=== PATIENT | male | born 1975 | race Caucasian/White ===

== ENCOUNTER 2021-03-20 09:41 | Emergency (ER) | payer OTHER ==
[~2021-03-20] VITALS: Ht 193 cm; Wt 99.8 kg
[~2021-03-20 09:41] MED LIST: CLARITHROMYCIN500 MG PO; PATANOL5 ML OD
--- OUTSIDE RECORDS SUMMARY | 2021-03-20 09:44 | XMS ---
PreManage Notification: RADHA MELENDEZ Security [employer] Events No recent Security Events currently on file [facility] There are no care providers on record at this time. Carolyn has no Care Guidelines for this patient. Luz VISIT COUNT (12 MO.) 1 ROSSY Kowalski TOTAL 1 NOTE: Visits indicate total known visits. ED/C VISIT TRACKING (12 MO.) 03/20/2021 09:42 ROSSY Cantu OR TYPE: Emergency COMPLAINT: - DIZZY, CHEST PAIN INPATIENT VISIT TRACKING (12 MO.) No inpatient visits to display in this time frame [id number]
--- NOTE | 2021-03-20 14:19 | EKG ---
[facility] [address] [facility] [place], [place] [address] Signed Normal sinus rhythm with sinus arrhythmia Normal ECG No previous ECGs available Confirmed by NOEL DOWNEY DO ([id number]) on 03/20/2021 2:19:24 PM Electronically Signed By: NOEL DOWNEY DO 03/20/21 1419 PATIENT NAME: RADHA MELENDEZ Electrocardiogram DATE OF : 77 PHYSICIAN: NOEL DOWNEY DO REPORT #: [id number] REPORT IS CONFIDENTIAL AND NOT TO BE RELEASED WITHOUT AUTHORIZATION
== END 2021-03-20 11:44 | disposition home or self-care (01) ==
LOC: ED 09:41
DX: R07.9 Chest pain, unspecified (principal); Z88.0 Allergy status to penicillin; Z88.1 Allergy status to other antibiotic agents; Z88.2 Allergy status to sulfonamides; Z79.899 Other long term (current) drug therapy
CPT/HCPCS: 71046; 80053; 84443; 84484; 85025; 93005; 93010; 99285-25

== ENCOUNTER 2022-07-26 10:56 | Emergency (ER) | payer OTHER ==
[~2022-07-26] VITALS: Ht 193 cm; Wt 95.2 kg
--- OUTSIDE RECORDS SUMMARY | 2022-07-26 11:00 | XMS ---
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 Luz VISIT COUNT (12 MO.) 1 ROSSY Kowalski TOTAL 1 NOTE: Visits indicate total known visits. ED/UCC VISIT TRACKING (12 MO.) 07/26/2022 10:58 ROSSY Cantu OR TYPE: Emergency COMPLAINT: - RAPID HEART RATE INPATIENT VISIT TRACKING (12 MO.) No inpatient visits to display in this time frame [id number]
[2022-07-26] MEDS ORDERED: ALPRAZOLAM0.25 MG PO (11:09)
[2022-07-26] MEDS ORDERED: ACETAZOLAMIDE125 MG PO (11:09)
[2022-07-26] MEDS ORDERED: OMEPRAZOLE20 MG PO (11:09)
--- NOTE | 2022-07-27 07:52 | EKG ---
[facility] [address] [place] [address] Signed Atrial fibrillation with rapid ventricular response Abnormal ECG When compared with ECG of 20-MAR-2021 09:52, Atrial fibrillation has replaced Sinus rhythm Vent. rate has increased BY 56 BPM Confirmed by RODERICK MOE MD ([id number]) on 07/27/2022 7:52:32 AM Electronically Signed By: RODERICK MOE MD 07/27/22751 PATIENT NAME: RADHA MELENDEZ Electrocardiogram DATE OF : 77 PHYSICIAN: RODERICK MOE MD REPORT #: [id number] REPORT IS CONFIDENTIAL AND NOT TO BE RELEASED WITHOUT AUTHORIZATION
== END 2022-07-26 13:10 | disposition home or self-care (01) ==
LOC: ED 10:56
DX: I48.91 Unspecified atrial fibrillation (principal); Z88.0 Allergy status to penicillin; Z88.2 Allergy status to sulfonamides; Z88.8 Allergy status to other drugs, medicaments and biological substances
CPT/HCPCS: 36415; 80053; 83735; 84484; 85025; 93005; 93010; J2704

== ENCOUNTER 2025-02-02 07:50 | Day surgery (SDC) | payer OTHER ==
[2025-01-11 08:41] VITALS: BP 116/75
[~2025-02-02] VITALS: Ht 193 cm; Wt 100.0 kg
[~2025-02-02 07:50] MED LIST changes: +ACETAZOLAMIDE125 MG PO; +ALPRAZOLAM0.25 MG PO; +IBLOOD GLUCOSE TEST STRIP 1 EA TEST VI PRN; +LACTATED RINGER'S 1,000 ML IV SCH; +LIDOCAINE HCL 1% 5 ML SDV INJ ONE; +METOPROLOL TART25 MG PO; +OMEPRAZOLE20 MG PO; +TESTONE CI200 MG/1 M IM; +TOPROL XL100 MG PO; +VIAGRA25 MG PO; +ZYRTEC10 MG PO
[2025-02-02 08:11] VITALS: BP 122/85
[2025-02-02] MEDS ORDERED: propofoL 200 MG/20 ML VIAL ONE ×2 (08:54→09:09)
[2025-02-02] MEDS ORDERED: LIDOCAINE HCL 2% 5 ML SDV ONE (08:54)
--- NOTE | 2025-02-02 09:47 | NUR ---
02/02/25 0947 Giulia Trujillo 0934-PT ARRIVES TO PACU VIA STRETCHER, RESTING ON LT SIDE. PT NOT RESPONSIVE TO VERBAL OR TACTILE STIMULI, VSS ON 2L VIA NC, RR EVEN AND UNLABORED. 0940-PT TITRATED TO RA, VS REMAIN STABLE, PT CONTINUES TO REST W/ EYES CLOSED, RR EVEN AND UNLABORED.
[2025-02-02 10:04] VITALS: BP 117/84
--- NOTE | 2025-02-03 08:19 | OR ---
[facility] [address] [place], [place] [address] Signed DATE OF OPERATION: 02/02/2025 SURGEON: Edmond Corrales MD PREOPERATIVE DIAGNOSIS: Paternal grandfather with colon cancer in his late 60s. POSTOPERATIVE DIAGNOSIS: Minimal internal and external hemorrhoids. PROCEDURE: Colonoscopy without biopsy. ESTIMATED BLOOD LOSS: None. INDICATIONS: Idris is a 49-year-old gentleman, asked to see me for his initial colonoscopy. His paternal grandfather was diagnosed with colon cancer in his 60s and then from the colon cancer in his 70s. I had met Stephan in March of 2023. However, he developed paroxysmal atrial fibrillation and underwent cardioversion several times. Eventually, Dr. Dat Cross was able to help him with his cardiac ablation. He completed this in July 2023. He said he has done great ever since. He does see Dr. Ying once a year. him and all the stress related to his work is gone. He has been off the alprazolam and the diazepam. 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 Currently, he has no lower GI complaints. He did go through prostate cancer and a radical prostatectomy since I had seen him last. In the office, I had given him a brochure on colonoscopy. We had reviewed the nature of the test. There is risk including, but not limited to gas bloating, crampy abdominal pain, bleeding, perforation requiring surgery, and missed diagnosis. We also reviewed the written instructions for the bowel prep line by line. He understands the need for monitored anesthesia care, particularly with his paroxysmal AFib along with his sleep apnea and his significant anxiety. He had expressed understanding and wished to proceed. He said his will take him home afterwards. DESCRIPTION OF PROCEDURE: Idris was taken into our endoscopy suite and placed in the left lateral decubitus position. He was given monitored anesthesia care propofol infusion per our nurse logistics engineer. A digital rectal exam was performed. He had just a small external hemorrhoid tissue. He had good sphincter tone. There were no masses. His prostate Electronically Signed By: EDMOND CORRALES MD 02/03/25 0819 PATIENT NAME: IDRIS MELENDEZ OPERATIVE REPORT DATE OF : 77 REPORT #: [id number] PHYSICIAN: EMDOND CORRALES MD PCP: ALLAN STRANGE MD REPORT IS CONFIDENTIAL AND NOT TO BE RELEASED WITHOUT AUTHORIZATION [facility] [address] [place], [place] [address] Signed gland was absent. The adult colonoscope was introduced and advanced all the way around into the cecum under direct visualization of camera without difficulty. His prep was good. He had several areas of liquid particulate stool matter, those were irrigated and suctioned out quite readily. We could easily see the appendiceal orifice and ileocecal valve. The scope was then slowly withdrawn. We found no pathology throughout the entire colon or rectum. Upon retroflexion of scope, he had just small internal hemorrhoid columns. After this, the gas was suctioned out. The colonoscope removed. Idris tolerated the procedure quite well. RECOMMENDATIONS: Idris can return in 5 years for repeat colonoscopy due to his family history. He would be well advised to continue with monitored anesthesia care given the amount he required today. Edmond Corrales MD ALB/MODL /[id number] cc: Patient Chart MD Allan Go MD Copies: EDMOND CORRALES MD, RUSSELL BARR MD ~ Electronically Signed By: EDMOND CORRALES MD 02/03/25 0819 PATIENT NAME: IDRIS MELENDEZ OPERATIVE REPORT DATE OF : 77 REPORT #: [id number] PHYSICIAN: EDMOND CORRALES MD PCP: ALLAN STRANGE MD REPORT IS CONFIDENTIAL AND NOT TO BE RELEASED WITHOUT AUTHORIZATION
== END 2025-02-02 10:10 | disposition home or self-care (01) ==
LOC: DS 07:50
PROVIDERS: ATTEND Colon & Rectal Surgery
PROC: 0DJD8ZZ Inspection of Lower Intestinal Tract, Via Natural or Artificial Opening Endoscopic (ICD-10-PCS; principal; 2025-02-02 09:15)
DX: Z12.11 Encounter for screening for malignant neoplasm of colon (principal); K64.8 Other hemorrhoids; K64.4 Residual hemorrhoidal skin tags; K21.9 Gastro-esophageal reflux disease without esophagitis; I48.0 Paroxysmal atrial fibrillation; F17.220 Nicotine dependence, chewing tobacco, uncomplicated; Z79.899 Other long term (current) drug therapy; Z88.0 Allergy status to penicillin; Z88.8 Allergy status to other drugs, medicaments and biological substances; Z80.0 Family history of malignant neoplasm of digestive organs
CPT/HCPCS: J2003; J2704; J7121